=== PATIENT | female | born 1965 | race African-American/Black ===

== ENCOUNTER 2022-03-30 11:18 | Emergency (ER) | payer SELFPAY | END 2022-03-30 12:42 | disposition home or self-care (01) | LOC: CSHERS 11:18 | DX: J22 Unspecified acute lower respiratory infection (principal) | CPT/HCPCS: 71045; 93005 ==

== ENCOUNTER 2022-11-04 23:56 | Emergency (ER) | payer SELFPAY ==
[2022-11-05 01:19] LABS: ALT (SGPT) 14 U/L (8-55); AST (SGOT) 21 U/L (5-34); Albumin 4.4 g/dL (3.5-5.0); Alkaline Phosphatase 98 U/L (40-110); Anion Gap 15 mmol/L (10-20); BUN (Urea Nitrogen) 14 mg/dL (9.8-20.1); Bilirubin, Total 0.4 mg/dL (0.2-1.2); CK (CPK) 145 U/L (29-168); Calc. Creatinine Clearance 0 mL/min (70-130); Calcium 9.9 mg/dL (7.8-10.44); Carbon Dioxide 24 mmol/L (22-29); Chloride 103 mmol/L (98-107); Estimated GFR 70; Globulin 3.9 g/dL (2.4-3.5); Glucose 112 mg/dL (70-105); Protein, Total 8.3 g/dL (6.0-8.3); Sodium 138 mmol/L (136-145)
[2022-11-05 01:21] LABS: #Eosinphils 0.1 10x3/uL (0.0-0.5); #Monocytes 0.7 10x3/uL (0.0-1.1); #Neutrophils 4.5 10x3/uL (1.5-8.4); %Basophils 0.4 % (0.0-2.0); %Eosinophils 1.3 % (0.0-6.0); %Lymphocytes 36.5 % (18.0-47.0); %Monocytes 8.2 % (0.0-10.0); %Neutrophils 53.5 % (40.0-75.0); Hemoglobin 14.4 g/dL (12.0-15.5); Mean Corpuscular HGB CONC 33.6 g/dL (32.0-36.0); Mean Corpuscular Hemoglobin 29.5 pg (27.0-33.0); Mean Corpuscular Volume 87.7 fl (81.6-98.3); Mean Platelet Volume 10.3 fl (7.4-10.4); Platelet Count 282 10x3/uL (150-450); RBC Distribution Width 12.9 % (11.5-14.5); Red Blood Cell (RBC) Count 4.88 10x6/uL (3.90-5.03); White Blood Cell (WBC) Count 8.4 10x3/uL (3.5-10.5)
== END 2022-11-05 02:53 | disposition home or self-care (01) ==
LOC: CSHERS 23:56
DX: M54.12 Radiculopathy, cervical region (principal); R25.2 Cramp and spasm
CPT/HCPCS: 36416; 80053; 82550; 85025; 93005; 96365; J3475

== ENCOUNTER 2022-11-22 08:59 | Emergency (ER) | payer SELFPAY | END 2022-11-22 10:15 | disposition home or self-care (01) | LOC: CSHERS 08:59 | DX: M17.11 Unilateral primary osteoarthritis, right knee (principal) ==

== ENCOUNTER 2024-03-01 16:44 | Emergency (ER) | payer SELFPAY ==
[2024-03-01] MEDS ORDERED: Boostrix 0.5 ML (Tdap) VIAL (>/=7 yrs of age) ONE (17:13)
[2024-03-01] MEDS ORDERED: Lidocaine 1% (PF) 30 ML VIAL ONE (17:49)
[2024-03-01] MEDS ORDERED: Bacitracin 1 PK ONE (17:49)
== END 2024-03-01 18:25 | disposition home or self-care (01) ==
LOC: CSHERS 16:44
DX: L03.012 Cellulitis of left finger (principal); L02.512 Cutaneous abscess of left hand; Z75.3 Unavailability and inaccessibility of health-care facilities; Z23 Encounter for immunization
CPT/HCPCS: 10060; 90471; 90715; J2001

== ENCOUNTER 2024-11-25 15:27 | Emergency (ER) | payer SELFPAY, OTHER | END 2024-11-25 17:03 | disposition home or self-care (01) | LOC: CSHERS 15:27 | DX: S60.222A Contusion of left hand, initial encounter (principal); V89.9XXA Person injured in unspecified vehicle accident, initial encounter | CPT/HCPCS: 99284 ==